=== PATIENT | male | born 1975 | race Caucasian/White ===

== ENCOUNTER 2017-05-19 05:49 | Emergency (ER) | payer MEDICAID ==
[~2017-05-19] VITALS: Ht 190.5 cm; Wt 109.1 kg
[2017-05-19 07:21] VITALS: BP 144/91
[2017-05-19] MEDS ORDERED: IBUPROFEN 600 MG TABLET PO ONE (07:30)
== END 2017-05-19 08:03 | disposition home or self-care (01) ==
LOC: EMS 05:51
DX: S93.401A Sprain of unspecified ligament of right ankle, initial encounter (principal); S20.211A Contusion of right front wall of thorax, initial encounter; S80.211A Abrasion, right knee, initial encounter; V19.9XXA Pedal cyclist (driver) (passenger) injured in unspecified traffic accident, initial encounter; Y93.89 Activity, other specified; Y92.89 Other specified places as the place of occurrence of the external cause; Y99.8 Other external cause status
CPT/HCPCS: 99284

== ENCOUNTER 2017-05-24 12:21 | Emergency (ER) | payer MEDICAID ==
[~2017-05-24] VITALS: Ht 190.5 cm; Wt 109.1 kg
[2017-05-24] MEDS ORDERED: IBUPROFEN 800 MG TABLET PO ONE (14:30)
[2017-05-24 14:58] VITALS: BP 124/72
== END 2017-05-24 15:07 | disposition home or self-care (01) ==
LOC: EMS 12:22
DX: S86.811A Strain of other muscle(s) and tendon(s) at lower leg level, right leg, initial encounter (principal); X58.XXXA Exposure to other specified factors, initial encounter; Y93.89 Activity, other specified; Y92.89 Other specified places as the place of occurrence of the external cause; Y99.8 Other external cause status
CPT/HCPCS: 99284